=== PATIENT | female | born 1960 | race Caucasian/White ===

== ENCOUNTER 2020-07-20 16:46 | Outpatient (CLI) | payer OTHER, SELFPAY | END 2020-07-20 16:47 | disposition home or self-care (01) | LOC: ANHCOVIDVC 16:46 | PROVIDERS: PCP Internal Medicine | DX: Z23 Encounter for immunization (principal) | CPT/HCPCS: 0001A; 91300 ==

== ENCOUNTER 2020-08-10 16:47 | Outpatient (CLI) | payer OTHER, SELFPAY | END 2020-08-10 16:48 | disposition home or self-care (01) | LOC: ANHCOVIDVC 16:47 | PROVIDERS: PCP Internal Medicine | DX: Z23 Encounter for immunization (principal) | CPT/HCPCS: 0002A; 91300 ==

== ENCOUNTER 2021-04-26 00:47 | Day surgery (SDC) | payer OTHER, SELFPAY ==
[2021-04-15 14:57] VITALS: BMI 46.0
--- NOTE | 2021-04-26 08:12 | WPDANESEPPF ---
Anes - Initial Pre Proc Eval Procedure: Operation Date: 04/26/21 10:30 Proposed Procedures p Screening Colonoscopy - Az Escobedo MD Date/Time: 04/26/21 08:12 Surgeon: Az Escobedo MD Pre Op Diagnosis: family hx of colon ca, neoplasm screening Patient Data Age: 60 Gender: F Height: 1.6 m Weight: 118 kg Allergies Allergy/AdvReac Type Severity Reaction Status Date / Time No Known Allergies Allergy Verified 04/26/21 09:13 Home Medications Medication Instructions Recorded Confirmed Type atorvastatin 10 mg PO DAILY 04/15/21 04/26/21 History escitalopram oxalate [Lexapro] 10 mg PO DAILY 04/15/21 04/26/21 History levothyroxine 137 mcg PO DAILY 04/15/21 04/26/21 History lisinopril-hydrochlorothiazide 1 tablet PO DAILY 04/15/21 04/26/21 History semaglutide [Ozempic] 1 mg SUBCUT WEEKLY 04/15/21 04/26/21 History Patient hx anesthesia problems: none Family hx anesthesia problems: none Results Review: All pre-operative results and documents have been reviewed as part of the pre-operative evaluation. [facility] Past Medical History Medical History (Updated 04/26/21 @ 09:21 by Az Escobedo MD) Anxiety Diabetes type 2, controlled Hyperlipidemia Hypertension Hypothyroidism Family History Family History (Updated 01/30/18 @ 08:26 by DOCTOR UNKNOWN) Mother Hypertension Family history of kidney disease Family history of diabetes mellitus in first degree relative Diabetes mellitus Carcinoma of colon Father Family history of diabetes mellitus in first degree relative Acute myocardial infarction Diabetes mellitus Social History Social History Smoking status: Never smoker Alcohol intake: current Alcohol use details: rarely Living arrangements: other Spiritual care concerns: No Anes - Eval Final PreProcedure Day of Procedure 04/26/21 08:12 Patient weight: morbidly obese Heart: regular rate and rhythm Lungs: clear to auscultation and normal air movement Airway: Mallampati scale class II Neurological: alert and oriented Last oral intake: >/= 8 hours ASA classification: III Emergent: no Anesthetic plan: proceed Anesthesia type and monitoring: general GIVS and standard monitoring Results Review: All pre-operative results and documents have been reviewed as part of the pre-operative evaluation. Informed Consent: The patient's anesthetic plan and its attendant risks and benefits were discussed with the patient/family/POA. Questions were solicited and answers provided to the satisfaction of the patient/family/POA.
[2021-04-26 09:16] VITALS: BP 136/74; PULSE 64; RESP 17; TEMP 36; O2SAT 100; BMI 46.9
--- NOTE | 2021-04-26 09:19 | WPDGICN ---
Assessment and Plan Assessment and plan (1) Family history of colon cancer in mother: Code(s): Z80.0 - Family history of malignant neoplasm of digestive organs Status: Acute Assessment and Plan: Patient's mother had colon cancer. For this reason surveillance colonoscopy advised intervals. GI Consult Note Consult date/time: 04/26/21 09:19 HPI: Yeny Cohen is a 60 year old female Presents for screening colonoscopy. Patient's current weight appetite bowel movements are normal. She denies abdominal pain. She has had no blood in her stools. Patient's family history is significant that her mother had colon cancer. Patient previously had screening colonoscopy by Dr. Gan. In 2018 preparation was somewhat limited. For this reason patient presents today for follow-up colonoscopy. Review of Systems Review of Systems: All systems reviewed & are unremarkable except as noted in HPI and below PMFSH Past Medical History Medical History (Updated 04/26/21 @ 09:21 by Az Escobedo MD) Anxiety Diabetes type 2, controlled Hyperlipidemia Hypertension Hypothyroidism Family History Family History (Updated 01/30/18 @ 08:26 by DOCTOR UNKNOWN) Mother Hypertension Family history of kidney disease Family history of diabetes mellitus in first degree relative Diabetes mellitus Carcinoma of colon Father Family history of diabetes mellitus in first degree relative Acute myocardial infarction Diabetes mellitus Social History Social History Smoking status: Never smoker Alcohol intake: current Alcohol use details: rarely Living arrangements: other Spiritual care concerns: No Meds Home Medications and Allergies Home Medications Medication Instructions Recorded Confirmed Type atorvastatin 10 mg PO DAILY 04/15/21 04/26/21 History escitalopram oxalate [Lexapro] 10 mg PO DAILY 04/15/21 04/26/21 History levothyroxine 137 mcg PO DAILY 04/15/21 04/26/21 History lisinopril-hydrochlorothiazide 1 tablet PO DAILY 04/15/21 04/26/21 History semaglutide [Ozempic] 1 mg SUBCUT WEEKLY 04/15/21 04/26/21 History Allergies Allergy/AdvReac Type Severity Reaction Status Date / Time No Known Allergies Allergy Verified 04/26/21 09:13 Vital Signs Vital Signs - 24 hr 04/26/21 09:16 Temperature 96.8 F L Pulse Rate 64 Respiratory Rate 17 Blood Pressure 136/74 Pulse Oximetry 100 Exam Narrative: Physical exam reveals patient be alert. Vital signs stable. HEENT exam is unremarkable. Patient is anicteric. Lungs are clear to auscultation and percussion. Heart is without murmur or extra sounds. Abdominal exam bowel sounds are present soft nontender with no hepatosplenomegaly. Digital external rectal exam is normal.
[2021-04-26 09:24] LABS: Glucose Point of Care 76 mg/dl (65-105)
[2021-04-26] MEDS: LACTATED RINGERS 1,000 ML 150 ML IV CONT (09:28)
[2021-04-26 09:51] VITALS: BP 87/53; PULSE 59; RESP 23; O2SAT 99
[2021-04-26 10:01] VITALS: BP 107/56; PULSE 53; RESP 17; O2SAT 99
[2021-04-26 10:05] LABS: Glucose Point of Care 73 mg/dl (65-105)
[2021-04-26 10:11] VITALS: BP 131/75; PULSE 56; RESP 20; O2SAT 100
== END 2021-04-26 10:25 | disposition home or self-care (01) ==
PROVIDERS: PCP Nurse Practitioner Family; Visit Provider Internal Medicine Gastroenterology
PROC: 0DJD8ZZ Inspection of Lower Intestinal Tract, Via Natural or Artificial Opening Endoscopic (ICD-10-PCS; CPT 45378; principal; 2021-04-26 10:30)
DX: Z12.11 Encounter for screening for malignant neoplasm of colon (principal); K64.8 Other hemorrhoids; I10 Essential (primary) hypertension; E11.9 Type 2 diabetes mellitus without complications; E78.5 Hyperlipidemia, unspecified; E03.9 Hypothyroidism, unspecified; F41.9 Anxiety disorder, unspecified; Z80.0 Family history of malignant neoplasm of digestive organs
CPT/HCPCS: 45378; 82948; J2704; J7120

== ENCOUNTER 2022-09-19 11:58 | Outpatient (CLI) | payer OTHER, SELFPAY ==
[2022-09-19 12:24] LABS: Hematocrit 43.3 % (37.0-47.0); Hemoglobin 13.6 g/dL (12.0-15.0)
[2022-09-19 12:35] LABS: Anion Gap 5 mmol/L (8-16); Blood Urea Nitrogen 9 mg/dL (7-17); Calcium 8.8 mg/dL (8.4-10.2); Carbon Dioxide 31 mmol/L (22-30); Chloride 99 mmol/L (98-107); Estimated Glomerular Filt Rate > 60; Glucose 95 mg/dL (65-110); Potassium 3.4 mmol/L (3.4-5.0); Sodium 135 mmol/L (137-145)
== END 2022-09-19 11:59 | disposition home or self-care (01) ==
PROVIDERS: Anesthesiology; PCP Nurse Practitioner Family; Visit Provider Obstetrics & Gynecology
DX: E11.9 Type 2 diabetes mellitus without complications (principal); N95.0 Postmenopausal bleeding
CPT/HCPCS: 36415; 80048; 85014; 85018

== ENCOUNTER 2022-09-23 01:49 | Day surgery (SDC) | payer OTHER, SELFPAY ==
[2022-09-15 12:49] VITALS: BMI 54.8
--- NOTE | 2022-09-15 12:54 | PC.NURSE ---
Report to the Outpatient Waiting Room, entrance under the green pavilion located off [facility], at time 7:30 on date 09/23/22. Planned Procedure Time: 9:30. Time changes happen often and if your time is changed the preop area will call you the afternoon before. - You and your visitor will be asked to self-screen and do not enter if you have any COVID symptoms. - A mask is optional within the hospital at this time. Patients may have clear liquids (water, carbonated beverages, clear teas, apple juice) until 3 hours prior to surgery with a maximum of 20 ounces. - No food from midnight until time of surgery Take the following medications with a SIP of water the morning of surgery: LEXAPRO, LEVOTHYROXINE DO NOT STOP ANY OF YOUR OTHER PRESCRIPTION MEDICATIONS PRIOR TO SURGERY?EXCEPT THE FOLLOWING Medications to discontinue per physician: N/A Date to take last dose: N/A Please no make-up, nail bulgarian, hairspray, perfume, deodorant, or body powder the day of surgery. No jewelry (including any body piercings) or valuables the day of surgery, leave them at home. Please take a shower or bath the night before, or the morning of, surgery with an antibacterial soap. Wear comfortable, loose fitting clothing. - Jewelry must be removed prior to entering the operating room. Rings and piercings that are not removed may be cut off. - The hospital will not accept responsibility for valuables. - Please leave all valuables, including medications, at home the day of surgery. If you are going home after surgery, a licensed truck driver helper must drive you home. - NO public transportation without another adult if you receive anesthesia. - We recommend that an adult stay with you for 24 hours following discharge. - We also recommend that you do not drive, make important decision, drink alcoholic beverages, or take any drugs that were not prescribed by your health care provider for at least 24 hours after your discharge time. Follow any additional instructions given to you from your surgeon. If you or anyone in your household have experienced Covid symptoms in the past week, please notify your surgeon or the nurse liaison at the phone number below for possible testing. Telephone instructions given to PT - MAEVE VALENZUELA and asked if any additional questions and then verbalized understanding. Patient advised to call surgeon office or pre surgery nurse liaison [phone] if any additional questions.
--- NOTE | 2022-09-21 16:30 | P.HP_ITS ---
H&P: HPI History of Present Illness Date/Time: 09/21/22 16:30 Chief Complaint: Postmenopausal bleeding Narrative: Some 62-year-old postmenopausal who had some vaginal bleeding. She underwent ultrasound which showed thickened endometrium measuring 13mm. And also some irregularity to it. She was offered hysteroscopy and dilatation curettage. Risks and benefits reviewed including left was of of , as piration burning or bleeding, transfusion, perforation injury to bowel bladder ureters other internal organs with need for open laparotomy. She received the ACOG handout entitled hysteroscopy as well as dilatation curettage respectively. She had all questions answered. She asked to proceed. [facility] Past Medical History Medical History Anxiety Diabetes type 2, controlled Hyperlipidemia Hypertension Hypothyroidism Family History Family History Mother Hypertension Family history of kidney disease Family history of diabetes mellitus in first degree relative Diabetes mellitus Carcinoma of colon Father Family history of diabetes mellitus in first degree relative Acute myocardial infarction Diabetes mellitus Social History Social History Smoking status: Never smoker Alcohol intake: current Drinks per week: 2 Alcohol use details: rarely Substance use: never Substance use type: does not use Living arrangements: with family Additional living arrangements comments: SON Spiritual care concerns: No Meds Home Medications and Allergies Home Medications Medication Instructions Recorded Confirmed Type atorvastatin 10 mg tablet 10 mg PO DAILY 04/15/21 09/15/22 History escitalopram oxalate 10 mg tablet 10 mg PO DAILY 04/15/21 09/15/22 History (Lexapro) levothyroxine 137 mcg tablet 137 mcg PO DAILY 04/15/21 09/15/22 History lisinopril 10 1 tablet PO DAILY 04/15/21 09/15/22 History mg-hydrochlorothiazide 12.5 mg tablet semaglutide 1 mg/dose (4 mg/3 mL) 1 mg subcut WEEKLY 04/15/21 09/15/22 History subcutaneous pen injector (Ozempic) Allergies Allergy/AdvReac Type Severity Reaction Status Date / Time No Known Allergies Allergy Verified 09/15/22 12:48 Exam Const: General: cooperative, healthy appearing, comfortable and overweight Orientation/consciousness: oriented to person, oriented to place and oriented to time HENMT: Head: normal to inspection Resp: Effort & Inspection: normal respiratory effort Cardio: Rate: regular rate Rhythm: regular rhythm Heart sounds: S1 normal heart sound present and S2 normal heart sound present GI: Inspection: normal to inspection and obesity : External Female Exam: normal external appearance Speculum Exam - Vagina: normal appearance of the vagina and vaginal bleeding Speculum Exam - Cervix: normal appearance of the cervix Bimanual exam- vagina & uterus: enlarged Bimanual Exam- Adnexa, other: normal adnexae Assessment and Plan Assessment and plan (1) Postmenopausal bleeding: Code(s): N95.0 - Postmenopausal bleeding Status: Acute Plan Hysteroscopy/dilatation curettage
--- NOTE | 2022-09-22 09:58 | P.PNAN_ITS ---
Anes - Initial Pre Proc Eval Procedure: Operation Date: 09/23/22 09:30 Proposed Procedures p Hysteroscopy Dilation and Curettage - Cesar Power MD Date/Time: 09/22/22 09:58 Surgeon: Cesar Power MD Pre Op Diagnosis: post menopausal bleeding Patient Data Age: 62 Gender: F Height: 1.57 m Weight: 136.1 kg Allergies Allergy/AdvReac Type Severity Reaction Status Date / Time No Known Allergies Allergy Verified 09/23/22 08:29 Home Medications Medication Instructions Recorded Confirmed Type atorvastatin 10 mg tablet 10 mg PO DAILY 04/15/21 09/15/22 History escitalopram oxalate 10 mg tablet 10 mg PO DAILY 04/15/21 09/15/22 History (Lexapro) levothyroxine 137 mcg tablet 137 mcg PO DAILY 04/15/21 09/15/22 History lisinopril 10 1 tablet PO DAILY 04/15/21 09/15/22 History mg-hydrochlorothiazide 12.5 mg tablet semaglutide 1 mg/dose (4 mg/3 mL) 1 mg subcut WEEKLY 04/15/21 09/15/22 History subcutaneous pen injector (Ozempic) hydrocodone 5 mg-acetaminophen 325 1 tablet PO Q4H PRN pain #14 tabs 09/23/22 Rx mg tablet Patient hx anesthesia problems: none Family hx anesthesia problems: none Results Review: All pre-operative results and documents have been reviewed as part of the pre- operative evaluation. [facility] Past Medical History Medical History Anxiety Diabetes type 2, controlled Hyperlipidemia Hypertension Hypothyroidism Family History Family History Mother Hypertension Family history of kidney disease Family history of diabetes mellitus in first degree relative Diabetes mellitus Carcinoma of colon Father Family history of diabetes mellitus in first degree relative Acute myocardial infarction Diabetes mellitus Social History Social History Smoking status: Never smoker Alcohol intake: current Drinks per week: 2 Alcohol use details: rarely Substance use: never Substance use type: does not use Living arrangements: with family Additional living arrangements comments: SON Spiritual care concerns: No Anes - Eval Final PreProcedure Day of Procedure 09/22/22 09:58 Patient weight: super morbidly obese Heart: regular rate and rhythm Lungs: clear to auscultation and normal air movement Airway: Mallampati scale class II Neurological: alert and oriented Last oral intake: >/= 8 hours ASA classification: III Emergent: no Anesthetic plan: proceed Anesthesia type and monitoring: general GIVS and standard monitoring Results Review: All pre-operative results and documents have been reviewed as part of the pre- operative evaluation. Informed Consent: The patient's anesthetic plan and its attendant risks and benefits were discus sed with the patient/family/POA. Questions were solicited and answers provided to the satisfaction of the patient/family/POA.
--- NOTE | 2022-09-23 07:13 | WPDHPUPDATE1 ---
History and Physical Update Update Date/Time: 09/23/22 07:13 History and Physical has been reviewed, including an updated exam of the patient. There are NO changes in the patient's condition. Risks, benefits, and alternatives have been discussed and questions answered. Patient agrees to proceed with procedure.
[2022-09-23 07:38] VITALS: BP 152/74; PULSE 60; RESP 16; TEMP 35.9; O2SAT 98; BMI 52.0
[2022-09-23] MEDS: ACETAMINOPHEN 500 MG TABLET 1000 MG PO (08:26)
[2022-09-23] MEDS: LACTATED RINGERS 1,000 ML 30 ML IV CONT (08:27)
[2022-09-23 08:30] LABS: Glucose Point of Care 94 mg/dl (65-105)
[2022-09-23] MEDS: LIDOCAINE HCL 1% LOCAL INJ 20 ML VIAL 10 ML INFILTRATE (09:56)
--- NOTE | 2022-09-23 10:07 | W.PM.PROC2 ---
Procedure Note - Detailed Date of Procedure 09/23/22 Pre-op Diagnosis post menopausal bleeding Post-op Diagnosis Other (Uterine fibroid) Procedure Performed hysteroscopy/ dilatation curettage/l polypectomy Surgeon Cesar Power MD Anesthesia MAC and Local Indications 62-year-old female with postmenopausal bleeding Findings uterus sounded 8cm. Small fibroid was seen at the fundus. Description of Procedure Patient was prepped draped in sterile fashion placed in dorsal lithotomy position. Under excellent IV sedation weighted speculum placed in posterior fornix vagina. Anterior lip of the cervix grasped with a single-tooth tenaculum. 2.5cc 1% xylocaine anesthesia placed at 2, 4, 8, 10:00 a.m. of the cervix. Uterus sounded 8cm. Serial dilatation with fragmented dilators performed followed by passage of the V to hysteroscope using normal saline as visualizing medium. A small uterine fibroid was seen at the fundus and using the viewed instrument this was cut away from the wall of the uterus. Uterus was scraped over the entire 360?. The instruments withdrawn. The patient was awakened went to recovery in satisfactory condition. All sponge, needle, instrument counts were correct. There were no immediate complications Estimated Blood Loss 5 Drains No Packing No Pathology Yes Complications No immediate complications Condition Stable Disposition PACU
[2022-09-23 10:09] VITALS: BP 113/61; PULSE 53; RESP 14; O2SAT 96
[2022-09-23 10:22] LABS: Glucose Point of Care 90 mg/dl (65-105)
[2022-09-23 10:40] VITALS: BP 113/61; PULSE 53; RESP 16; O2SAT 96
--- NOTE | 2022-09-23 11:00 | SUR.PHASEII ---
Vital signs stable, IV removed patient dressed and waiting for ride.
== END 2022-09-23 11:40 | disposition home or self-care (01) ==
PROVIDERS: PCP Nurse Practitioner Family; Visit Provider Obstetrics & Gynecology
PROC: 0U5B8ZZ Destruction of Endometrium, Via Natural or Artificial Opening Endoscopic (ICD-10-PCS; CPT 58563; principal; 2022-09-23 09:30)
DX: N95.0 Postmenopausal bleeding (principal); N84.0 Polyp of corpus uteri; E11.9 Type 2 diabetes mellitus without complications; E78.5 Hyperlipidemia, unspecified; I10 Essential (primary) hypertension; E03.9 Hypothyroidism, unspecified
CPT/HCPCS: 58558; 82948; 88305; A9270; J1885; J2250; J2704; J3010; J7120

== ENCOUNTER 2023-04-13 07:38 | Outpatient (CLI) | payer OTHER, SELFPAY ==
--- NOTE | 2023-04-13 08:20 | ECG_ITS ---
Measurements Intervals [place] Rate: 51 P: 12 [place]: 199 QRS: -3 QRSD: 106 T: 43 QT: 470 QTc: 437 Interpretive Statements SINUS BRADYCARDIA NO PREVIOUS ECG AVAILABLE FOR COMPARISON Electronically Signed On 04-13-2023 9:21:27 [employer]ERSON[employer]OP[employer]OR by Enriqueta Chin M.D.
[2023-04-13 08:24] LABS: Hematocrit 41.3 % (37.0-47.0); Hemoglobin 13.2 g/dL (12.0-15.0); Mean Corpuscular Hemoglobin 31.9 pg (26-34); Mean Corpuscular Volume 99.8 fl (80-100); Mean Platelet Volume 11.9 fl (7.4-10.4); Platelet Count Result 224 k/mm3 (150-375); Red Blood Count 4.14 M/mm3 (4.2-5.4); Red Cell Distribution Width 13.8 % (11.5-14.5); White Blood Count 7.2 K/mm3 (4.5-10.0)
[2023-04-13 08:32] LABS: Anion Gap 7 mmol/L (8-16); Blood Urea Nitrogen 10 mg/dL (7-17); Calcium 8.9 mg/dL (8.4-10.2); Carbon Dioxide 30 mmol/L (22-30); Chloride 98 mmol/L (98-107); Estimated Glomerular Filt Rate > 60; Glucose 105 mg/dL (65-110); Potassium 3.9 mmol/L (3.4-5.0); Sodium 135 mmol/L (137-145)
[2023-04-13 09:01] LABS: Basophils Absolute Auto 0.1 K/mm3 (0.0-0.1); Basophils Percent Auto 0.8 % (0.2-1.2); Eosinophils Absolute Auto 0.1 K/mm3 (0-0.3); Eosinophils Percent Auto 1.8 % (0-4.4); Immature Granulocyte Absolute 0.02 K/mm3 (0.00-0.031); Immature Granulocyte Percent A 0.3 % (0-0.5); Lymphocytes Absolute Auto 2.54 K/mm3 (0.9-3.2); Lymphocytes Percent Auto 34.6 % (18.3-44.2); Monocytes Absolute Auto 0.7 K/mm3 (0.1-0.6); Monocytes Percent Auto 9.5 % (2.6-8.5); Neutrophils Absolute Auto 3.9 K/mm3 (1.3-6.7)
== END 2023-04-13 07:39 | disposition home or self-care (01) ==
LOC: ANHLAB 07:40
PROVIDERS: PCP Nurse Practitioner Family; Referring Provider Obstetrics & Gynecology; Visit Provider Anesthesiology
DX: N95.0 Postmenopausal bleeding (principal); E11.9 Type 2 diabetes mellitus without complications; I10 Essential (primary) hypertension; Z01.818 Encounter for other preprocedural examination
CPT/HCPCS: 36415; 80048; 85025; 85027; 86850; 86900; 86901; 93005

== ENCOUNTER 2023-04-14 03:14 | Day surgery (SDC) | payer OTHER, SELFPAY ==
--- NOTE | 2023-04-11 06:55 | PM.IMHP ---
H&P: HPI History of Present Illness Date/Time: 04/11/23 06:55 Chief Complaint: vaginal bleeding and uterine fibroid Narrative: a 62-year-old female with the enlarged uterus and uterine fibroid and negative findings on hysteroscopy admitted for hysterectomy and bilateral salpingo-oophorectomy secondary to the above complaint. Risks and benefits reviewed including but not exclusive of , aspiration pneumonia, bleeding, transfusion, perforation injury to bowel, bladder, ureters, or other internal organs with need for open laparotomy. She received the ACOG handout entitled hysterectomy as well as a [facility] handout. She had all questions answered. She asked to proceed PMFSH Past Medical History Medical History Anxiety Diabetes type 2, controlled Hyperlipidemia Hypertension Hypothyroidism Family History Family History Mother Hypertension Family history of kidney disease Family history of diabetes mellitus in first degree relative Diabetes mellitus Carcinoma of colon Father Family history of diabetes mellitus in first degree relative Acute myocardial infarction Diabetes mellitus Social History Social History Smoking status: Never smoker Alcohol intake: current Drinks per week: 2 Alcohol use details: rarely Substance use: never Substance use type: does not use Living arrangements: with family Additional living arrangements comments: SON Spiritual care concerns: No Meds Home Medications and Allergies Home Medications Medication Instructions Recorded Confirmed Type atorvastatin 10 mg tablet 10 mg PO DAILY 04/15/21 09/15/22 History escitalopram oxalate 10 mg tablet 10 mg PO DAILY 04/15/21 09/15/22 History (Lexapro) levothyroxine 137 mcg tablet 137 mcg PO DAILY 04/15/21 09/15/22 History lisinopril 10 1 tablet PO DAILY 04/15/21 09/15/22 History mg-hydrochlorothiazide 12.5 mg tablet semaglutide 1 mg/dose (4 mg/3 mL) 1 mg subcut WEEKLY 04/15/21 09/15/22 History subcutaneous pen injector (Ozempic) hydrocodone 5 mg-acetaminophen 325 1 tablet PO Q4H PRN pain #14 tabs 09/23/22 Rx mg tablet Allergies Allergy/AdvReac Type Severity Reaction Status Date / Time No Known Allergies Allergy Verified 09/23/22 08:29 Exam Const: General: cooperative, healthy appearing and comfortable Nutritional Appearance: average body habitus Orientation/consciousness: oriented to person, oriented to place and oriented to time Chest: Chest palpation & inspection: normal inspection of the chest Resp: Effort & Inspection: normal respiratory effort Cardio: Rate: regular rate Rhythm: regular rhythm Heart sounds: S1 normal heart sound present and S2 normal heart sound present GI: Inspection: normal to inspection : External Female Exam: normal external appearance Speculum Exam - Vagina: normal appearance of the vagina Speculum Exam - Cervix: normal appearance of the cervix Bimanual exam- vagina & uterus: enlarged Bimanual Exam- Adnexa, other: normal adnexae Assessment and Plan Assessment and plan (1) Postmenopausal bleeding: Code(s): N95.0 - Postmenopausal bleeding Status: Acute (2) Uterine fibroid: Code(s): D25.9 - Leiomyoma of uterus, unspecified Status: Acute (3) Pelvic pain: Code(s): R10.2 - Pelvic and perineal pain Status: Acute Plan robotic total vaginal hysterectomy and salpingo-oophorectomy
--- NOTE | 2023-04-12 14:45 | PC.NURSE ---
Report to the Outpatient Waiting Room, entrance under the green pavilion located off [facility], at time 0930 on date 04/14/23. Planned Procedure Time: 1130. Time changes happen often and if your time is changed the preop area will call you the afternoon before. - You and your visitor will be asked to self-screen and do not enter if you have any COVID symptoms. - A mask is optional within the hospital at this time. Patients may have clear liquids (water, carbonated beverages, clear teas, apple juice) until 3 hours prior to surgery with a maximum of 20 ounces. 0830 - No food from midnight until time of surgery - Infants may have breast milk until 4 hours before surgery, formula 6 hours prior to surgery. - Children will be allowed to drink immediately following surgery. If applicable, please bring a bottle or sippy cup to assist with drinking. Juice, water, soda, and popsicles are readily available. For infants on formula, please bring formula the day of surgery. Pacifiers are allowed. Take the following medications with a SIP of water the morning of surgery: lexapro, levothyroxine DO NOT STOP ANY OF YOUR OTHER PRESCRIPTION MEDICATIONS PRIOR TO SURGERY ?EXCEPT THE FOLLOWING Medications to discontinue per physician atorvastatin, lisinopril-hydrochlorothiazide, multivitamins & supplements Date to take last dose 04/13/23 (multivitamins & supplements stopped 04/13/23) Please no make-up, nail welsh, hairspray, perfume, deodorant, or body powder the day of surgery. No jewelry (including any body piercings) or valuables the day of surgery, leave them at home. Please take a shower or bath the night before, or the morning of, surgery with an antibacterial soap. Wear comfortable, loose fitting clothing. Children are encouraged to wear pajamas. - Jewelry must be removed prior to entering the operating room. Rings and piercings that are not removed may be cut off. - The hospital will not accept responsibility for valuables. - Please leave all valuables, including medications, at home the day of surgery. If you are going home after surgery, a licensed grain combine driver must drive you home. - NO public transportation without another adult if you receive anesthesia. - We recommend that an adult stay with you for 24 hours following discharge. - We also recommend that you do not drive, make important decision, drink alcoholic beverages, or take any drugs that were not prescribed by your health care provider for at least 24 hours after your discharge time. For Pediatric surgeries, we recommend two adults accompany the child home. Follow any additional instructions given to you from your surgeon. If you or anyone in your household have experienced Covid symptoms in the past week, please notify your surgeon or the nurse liaison at the phone number below for possible testing. Telephone instructions given to Patient- Yeny Cohen and asked if any additional questions and then verbalized understanding. Patient advised to call surgeon office or pre surgery nurse liaison [phone] if any additional questions.
[2023-04-12 14:53] VITALS: BMI 51.2
--- NOTE | 2023-04-14 06:16 | WPDHPUPDATE1 ---
History and Physical Update Update Date/Time: 04/14/23 06:16 History and Physical has been reviewed, including an updated exam of the patient. There are NO changes in the patient's condition. Risks, benefits, and alternatives have been discussed and questions answered. Patient agrees to proceed with procedure.
[2023-04-14 09:40] LABS: Glucose Point of Care 98 mg/dl (65-105)
--- NOTE | 2023-04-14 09:56 | ECG_ITS ---
Measurements Intervals [place] Rate: 44 P: -3 [place]: 188 QRS: -11 QRSD: 96 T: 42 QT: 503 QTc: 432 Interpretive Statements Reduced ECG quality because of baseline motion artifact SINUS BRADYCARDIA POOR R-WAVE PROGRESSION BORDERLINE ECG COMPARED TO ECG 04/13/2023 08:26:19 NO SIGNIFICANT CHANGES Electronically Signed On 04-14-2023 10:42:27 [employer]PRESENTATIVE by Silvio Oneill M.D.
[2023-04-14 09:59] VITALS: BMI 51.2
[2023-04-14 10:08] VITALS: BP 127/57; PULSE 42; RESP 16; TEMP 36.3; O2SAT 98
== END 2023-04-14 12:20 | disposition home or self-care (01) ==
PROVIDERS: PCP Nurse Practitioner Family; Visit Provider Obstetrics & Gynecology
DX: N95.0 Postmenopausal bleeding (principal); D25.9 Leiomyoma of uterus, unspecified; I10 Essential (primary) hypertension; E11.9 Type 2 diabetes mellitus without complications; E78.5 Hyperlipidemia, unspecified; E03.9 Hypothyroidism, unspecified; F41.9 Anxiety disorder, unspecified; Z79.85 Long-term (current) use of injectable non-insulin antidiabetic drugs; Z53.9 Procedure and treatment not carried out, unspecified reason
CPT/HCPCS: 36415; 80048; 82948; 85025; 85027; 86850; 86900; 86901; 93005; 99213; G0463

== ENCOUNTER 2023-07-04 08:18 | Outpatient (CLI) | payer BC, SELFPAY ==
[2023-07-04 08:50] LABS: Basophils Absolute Auto 0.1 K/mm3 (0.0-0.1); Eosinophils Absolute Auto 0.2 K/mm3 (0-0.3); Eosinophils Percent Auto 2.3 % (0-4.4); Hematocrit 42.7 % (37.0-47.0); Hemoglobin 13.6 g/dL (12.0-15.0); Immature Granulocyte Absolute 0.02 K/mm3 (0.00-0.031); Immature Granulocyte Percent A 0.3 % (0-0.5); Lymphocytes Absolute Auto 2.58 K/mm3 (0.9-3.2); Lymphocytes Percent Auto 33.4 % (18.3-44.2); Mean Corpuscular HGB Conc 31.9 g/dl (32-36); Mean Corpuscular Volume 100.5 fl (80-100); Mean Platelet Volume 11.9 fl (7.4-10.4); Monocytes Absolute Auto 0.5 K/mm3 (0.1-0.6); Monocytes Percent Auto 6.9 % (2.6-8.5); Neutrophils Absolute Auto 4.3 K/mm3 (1.3-6.7); Neutrophils Percent Auto 56.1 % (45.5-73.1); Platelet Count Result 254 k/mm3 (150-375); Red Blood Count 4.25 M/mm3 (4.2-5.4); Red Cell Distribution Width 13.4 % (11.5-14.5); White Blood Count 7.7 K/mm3 (4.5-10.0)
[2023-07-04 08:58] LABS: Anion Gap 3 mmol/L (8-16); Blood Urea Nitrogen 14 mg/dL (7-17); Calcium 9.6 mg/dL (8.4-10.2); Carbon Dioxide 33 mmol/L (22-30); Chloride 99 mmol/L (98-107); Estimated Glomerular Filt Rate > 60; Glucose 107 mg/dL (65-110); Potassium 4.3 mmol/L (3.4-5.0); Sodium 135 mmol/L (137-145)
== END 2023-07-04 08:19 | disposition home or self-care (01) ==
LOC: ANHSURGERY 08:24
PROVIDERS: Anesthesiology; PCP Nurse Practitioner Family; Visit Provider Obstetrics & Gynecology
DX: Z01.818 Encounter for other preprocedural examination (principal); D25.9 Leiomyoma of uterus, unspecified; Z79.899 Other long term (current) drug therapy
CPT/HCPCS: 36415; 80048; 85025; 86850; 86900; 86901

== ENCOUNTER 2023-07-07 01:38 | Day surgery (SDC) | payer BC, SELFPAY ==
[2023-06-30 11:05] VITALS: BMI 51.2
--- NOTE | 2023-06-30 11:10 | PC.NURSE ---
Report to the Outpatient Waiting Room, entrance under the green pavilion located off [facility], at time 9:30 on date 07/07/23. Planned Procedure Time: 11:30. Time changes happen often and if your time is changed the preop area will call you the afternoon before. - You and your visitor will be asked to self-screen and do not enter if you have any COVID symptoms. - A mask is optional within the hospital at this time. Patients may have clear liquids (water, carbonated beverages, clear teas, apple juice) until 3 hours prior to surgery (8:30) with a maximum of 20 ounces. - No food from midnight until time of surgery Take the following medications with a SIP of water the morning of surgery: LEVOTHYROXINE DO NOT STOP ANY OF YOUR OTHER PRESCRIPTION MEDICATIONS PRIOR TO SURGERY ?EXCEPT THE FOLLOWING Medications to discontinue per physician: VITAMINS/SUPPLEMENTS Date to take last dose: 07/03/23 Please no make-up, nail arabic, hairspray, perfume, deodorant, or body powder the day of surgery. No jewelry (including any body piercings) or valuables the day of surgery, leave them at home. Please take a shower or bath the night before, or the morning of, surgery with an antibacterial soap. Wear comfortable, loose fitting clothing. - Jewelry must be removed prior to entering the operating room. Rings and piercings that are not removed may be cut off. - The hospital will not accept responsibility for valuables. - Please leave all valuables, including medications, at home the day of surgery. If you are going home after surgery, a licensed bobtail driver must drive you home. - NO public transportation without another adult if you receive anesthesia. - We recommend that an adult stay with you for 24 hours following discharge. - We also recommend that you do not drive, make important decision, drink alcoholic beverages, or take any drugs that were not prescribed by your health care provider for at least 24 hours after your discharge time. Follow any additional instructions given to you from your surgeon. If you or anyone in your household have experienced Covid symptoms in the past week, please notify your surgeon or the nurse liaison at the phone number below for possible testing. Telephone instructions given to PT - MAEVE VALENZUELA and asked if any additional questions and then verbalized understanding. Patient advised to call surgeon office or pre surgery nurse liaison [phone] if any additional questions.
--- NOTE | 2023-07-05 07:54 | PM.IMHP ---
H&P: HPI History of Present Illness Date/Time: 07/05/23 07:54 Chief Complaint: Pelvic pain/postmenopausal bleeding with benign findings./uterine fibroid Narrative: Is a 62-year-old female status post hysteroscopy with benign findings she was admitted for robotic hysterectomy and bilateral salpingo-oophorectomy secondary to uterine fibroids pelvic pain and postmenopausal bleeding. As noted she had endometrial sampling which was negative. The risks and benefits of this procedure reviewed including but not exclusive of , aspiration, bleeding, transfusion, perforation injury to bowel, bladder, ureters, or other internal organs with need for laparotomy. She had all questions answered. She had read the ACOG handout as well as de Daily handout. She asked to proceed. She has been surgically cleared by her machine slat basket maker as well PMFSH Past Medical History Medical History Anxiety Diabetes type 2, controlled Hyperlipidemia Hypertension Hypothyroidism Family History Family History Mother Hypertension Family history of kidney disease Family history of diabetes mellitus in first degree relative Diabetes mellitus Carcinoma of colon Father Family history of diabetes mellitus in first degree relative Acute myocardial infarction Diabetes mellitus Social History Social History Smoking status: Never smoker Alcohol intake: current Drinks per week: 2 Alcohol use details: RARE Substance use: current Substance use type: marijuana Other substance usage details: RARE Living arrangements: with family Additional living arrangements comments: SON Spiritual care concerns: No Meds Home Medications and Allergies Home Medications Medication Instructions Recorded Confirmed Type atorvastatin 10 mg tablet 10 mg PO DAILY 04/15/21 06/30/23 History levothyroxine 137 mcg tablet 137 mcg PO DAILY 04/15/21 06/30/23 History lisinopril 10 1 tablet PO DAILY 04/15/21 06/30/23 History mg-hydrochlorothiazide 12.5 mg tablet Adults Multivitamin 1 tab-cap PO DAILY 04/12/23 06/30/23 History B Complex-Vitamin B12 1 tab-cap PO DAILY 04/12/23 06/30/23 History Allergies Allergy/AdvReac Type Severity Reaction Status Date / Time No Known Allergies Allergy Verified 06/30/23 11:04 Exam Const: General: cooperative, comfortable and obese Orientation/consciousness: oriented to person, oriented to place and oriented to time HENMT: Head: normal to inspection Resp: Effort & Inspection: normal respiratory effort Cardio: Rate: regular rate Rhythm: regular rhythm Heart sounds: S1 normal heart sound present and S2 normal heart sound present GI: Inspection: normal to inspection and obesity : External Female Exam: normal external appearance Speculum Exam - Vagina: normal appearance of the vagina Speculum Exam - Cervix: normal appearance of the cervix Bimanual exam- vagina & uterus: enlarged and Uterine tenderness Bimanual Exam- Adnexa, other: normal adnexae Assessment and Plan Assessment and plan (1) Pelvic pain: Code(s): R10.2 - Pelvic and perineal pain Status: Acute (2) Uterine fibroid: Code(s): D25.9 - Leiomyoma of uterus, unspecified Status: Acute (3) Postmenopausal bleeding: Code(s): N95.0 - Postmenopausal bleeding Status: Acute Plan Robotic total vaginal hysterectomy and bilateral salpingo-oophorectomy
[2023-07-07] VITALS (8 sets, daily range): BP systolic 120–165; BP diastolic 60–92; PULSE 55–78; RESP 12–18; TEMP 36.2–37; O2SAT 96–100; BMI 53.8
--- NOTE | 2023-07-07 05:44 | WPDHPUPDATE1 ---
History and Physical Update Update Date/Time: 07/07/23 05:44 History and Physical has been reviewed, including an updated exam of the patient. There are NO changes in the patient's condition. Risks, benefits, and alternatives have been discussed and questions answered. Patient agrees to proceed with procedure.
--- NOTE | 2023-07-07 10:18 | P.PNAN_ITS ---
Anes - Initial Pre Proc Eval Procedure: Operation Date: 07/07/23 11:30 Proposed Procedures p Robotic Assisted Total Vaginal Hysterectomy with Bilateral Salpingo- oophorectomy - Cesar Power MD Date/Time: 07/07/23 10:18 Surgeon: Cesar Power MD Pre Op Diagnosis: Fibroids, Pain, Post Menopausal Bleeding Patient Data Age: 62 Gender: F Height: 1.57 m Weight: 133.5 kg Allergies Allergy/AdvReac Type Severity Reaction Status Date / Time No Known Allergies Allergy Verified 07/07/23 09:53 Home Medications Medication Instructions Recorded Confirmed Type atorvastatin 10 mg tablet 10 mg PO DAILY 04/15/21 06/30/23 History levothyroxine 137 mcg tablet 137 mcg PO DAILY 04/15/21 07/07/23 History lisinopril 10 1 tablet PO DAILY 04/15/21 06/30/23 History mg-hydrochlorothiazide 12.5 mg tablet Adults Multivitamin 1 tab-cap PO DAILY 04/12/23 06/30/23 History B Complex-Vitamin B12 1 tab-cap PO DAILY 04/12/23 06/30/23 History hydrocodone 5 mg-acetaminophen 325 1 tablet PO Q4H PRN pain #20 tabs 07/07/23 Rx mg tablet Patient hx anesthesia problems: none Family hx anesthesia problems: none Results Review: All pre-operative results and documents have been reviewed as part of the pre- operative evaluation. [facility] Past Medical History Medical History Anxiety Diabetes type 2, controlled Hyperlipidemia Hypertension Hypothyroidism Family History Family History Mother Hypertension Family history of kidney disease Family history of diabetes mellitus in first degree relative Diabetes mellitus Carcinoma of colon Father Family history of diabetes mellitus in first degree relative Acute myocardial infarction Diabetes mellitus Social History Social History Smoking status: Never smoker Alcohol intake: current Drinks per week: 2 Alcohol use details: RARE Substance use: current Substance use type: marijuana Other substance usage details: RARE Living arrangements: with family Additional living arrangements comments: SON Spiritual care concerns: No Anes - Eval Final PreProcedure Day of Procedure 07/07/23 10:18 Patient weight: super morbidly obese Heart: regular rate and rhythm Lungs: decreased breath sounds Airway: Mallampati scale class II Neurological: alert and oriented Last oral intake: >/= 8 hours ASA classification: III Emergent: no Anesthetic plan: proceed Anesthesia type and monitoring: general ETT and standard monitoring Results Review: All pre-operative results and documents have been reviewed as part of the pre- operative evaluation. Informed Consent: The patient's anesthetic plan and its attendant risks and benefits were discussed with the patient/family/POA. Questions were solicited and answers provided to the satisfaction of the patient/family/POA.
[2023-07-07] MEDS: LACTATED RINGERS 1,000 ML 30 ML IV CONT ×2 (10:30→12:27)
[2023-07-07] MEDS: ACETAMINOPHEN 500 MG TABLET 1000 MG PO (10:47)
[2023-07-07] MEDS: KETOROLAC 15 MG/ML VIAL (*BKC) IV PUSH (10:48)
[2023-07-07] MEDS: ceFAZolin 3 GM/D5W 100 ML 100 ML IVPB (11:00)
--- NOTE | 2023-07-07 12:11 | W.PM.PROC2 ---
Procedure Note - Detailed Date of Procedure 07/07/23 Pre-op Diagnosis Fibroids, Pain, Post Menopausal Bleeding Post-op Diagnosis Same Procedure Performed Robotic total vaginal hysterectomy bilateral salpingo-oophorectomy Surgeon Cesar Power MD Anesthesia General Indications a 62 year female postmenopausal bleeding benign findings endometrial sampling known fibroids Findings fibroid looking uterus. Normal-appearing ovaries and tubes. Description of Procedure Patient was prepped draped in the normal sterile fashion placed in the dorsal lithotomy position. Under excellent general trach anesthesia speculum placed in posterior fornix. Anterior lip the cervix grasped with a single-tooth tenaculum. Uterus sounded to 10cm. Serial dilatation with fragmented performed followed by passes the 8. MICHELLE and the number 3 cold cup. Next the 16 [place] catheter was placed and bladder drained clear urine. The weighted speculum and single-tooth removed. The gloves were changed. A supraumbilical incision made the Veress needle passed in the abdomen. Abdomen filled with CO2 gas [id number]. The 8mm trocar advanced in the abdomen. Downside visualized no injury seen. Patient placed in 80? Trendelenburg and right left lateral quadrant incisions made. 8Mm trocars advanced under direct visualization assuring injury. A right upper quadrant incision made the 8mm trocar advanced under direct visualization assuring no injury. The robot was docked. Some adhesions were seen anteriorly these were sharply dissected the anterior abdominal wall so the uterus could be seen. The left round ligament was grasped, burned, cut. Anteriorly a bladder flap was formed by sharply dissecting the peritoneum reflecting the bladder caudally away from the cervix uterus the opposite round ligament which was clamped, burned, cut. Next the infundibulopelvic structure was skeletonized to remove the ovary and tube clamped, burned, cut in serially brought to the level of the previously cut ligament. In similar fashion removing the left ovary and tube, infundibulopelvic structure was skeletonized. This was clamped, burned, cut and brought to the level of previously cutRound ligament. The cardinal broad ligaments on the left were then skeletonized serially clamping burning cutting and hugging the cervix and uterus until a large tortuous uterine vessels were seen on the left. These were individually clamped, burned, cut. In similar fashion on the right, the cardinal broad ligaments were serially skeletonized clamping burning cutting and hugging the cervix and uterus until the uterine vessels could be seen on the right. These were individually clamped, burned, cut. Excellent blanching of the uterus was noted. Colpotomy incision made in the cervix uterus ovaries and tubes removed through the vagina. The vagina was then closed with continuous running 0V lock from lateral edge to lateral edge back to the midline. Irrigation undertaken in cul-de-sac. The vagina was cuff was sprinkled with Hudson term. Blood loss estimated 25cc. The robot was undocked. The gas removed from the abdomen and the trocars removed from the incision sites. Incision sites were closed with 4-0 Monocryl and glue. Patient was awakened went to recovery in satisfactory condition. All sponge, needle, instrument counts were correct. There were no immediate complications noted Estimated Blood Loss 25 Drains No Packing No Pathology Yes Complications No immediate complications Condition Stable Disposition PACU
--- NOTE | 2023-07-07 12:15 | PM.DS ---
DS: Admitting Diagnosis Discharge Date 07/08/2023 Admitting Diagnosis uterine fibroids/postmenopausal bleeding DS: Discharge Diagnosis Discharge Diagnosis (1) Pelvic pain: Code(s): R10.2 - Pelvic and perineal pain Status: Acute (2) Uterine fibroid: Code(s): D25.9 - Leiomyoma of uterus, unspecified Status: Acute (3) Postmenopausal bleeding: Code(s): N95.0 - Postmenopausal bleeding Status: Acute DS: Summary Hospital Course Reason for hospitalization: patient was admitted on 07/07/2023 for robotic total the vaginal hysterectomy bilateral salpingo-oophorectomy Hospital Course: the patient's hospital course was unremarkable. She underwent the said procedure. She was up, voiding without difficulty, eating. Chin[place], ambulating, generally without complaints. Time Spent with Patient Time attestation: Total time spent providing and/or coordinating discharge services: Exam Const: General: cooperative, healthy appearing and comfortable Orientation/consciousness: oriented to person, oriented to place and oriented to time HENMT: Head: normal to inspection Resp: Effort & Inspection: normal respiratory effort Cardio: Rate: regular rate Rhythm: regular rhythm Heart sounds: S1 normal heart sound present and S2 normal heart sound present GI: Inspection: normal to inspection, incision ( Wounds are clean dry and intact) and obesity DS: Data Data Completed and Pending Pending studies at discharge: Pending at discharge 07/07/23 11:39 Surgical [PTH] Routine Discharge Plan Discharge Patient Disposition: Home, Self-Care Stand Alone Forms: General Discharge Instructions Follow-up/Referrals: Cesar Scherer MD [Physician] - Discharge Medications: New hydrocodone-acetaminophen 5-325 mg tablet 1 tablet PO Q4H PRN (Reason: pain) Qty: 20 0RF No Action levothyroxine 137 mcg Tablet 137 mcg PO DAILY atorvastatin 10 mg Tablet 10 mg PO DAILY lisinopril-hydrochlorothiazide 10-12.5 mg Tablet 1 tablet PO DAILY Adults Multivitamin 1 tab-cap PO DAILY B Complex-Vitamin B12 1 tab-cap PO DAILY
[2023-07-07] MEDS: fentaNYL CITRATE INJ (*CRX) 100 MCG/2 ML VIAL 25 MCG IV PUSH ×4 (13:04→13:12)
--- NOTE | 2023-07-07 13:30 | PC.NURSE ---
This patient, Yeny Cohen, was received from PACU on 07/07/23 at 1330. Patient/family oriented to unit policies and routines
[2023-07-07] MEDS: DEXTROSE 5%/LACTATED RINGERS 1,000 ML 125 ML IV CONT (14:12)
[2023-07-07] MEDS: KETOROLAC 30 MG/ML VIAL (*BKC) IV PUSH ×2 (14:13→20:47)
[2023-07-07] MEDS: DOCUSATE SODIUM 100 MG CAPSULE PO (18:24)
[2023-07-07] MEDS: SIMETHICONE 80 MG TAB.CHEW PO (18:25)
[2023-07-07] MEDS: FUROSEMIDE INJ 40 MG/4 ML VIAL 20 MG IV PUSH (18:25)
[2023-07-07] MEDS: HYDROcodone/acetaminophen (*CRX) 5-325 MG TABLET 1 TAB PO (20:47)
[2023-07-08 04:30] VITALS: BP 142/60; PULSE 60; RESP 16; TEMP 36.6; O2SAT 98
[2023-07-08 05:11] LABS: Basophils Percent Auto 0.2 % (0.2-1.2); Hematocrit 36.9 % (37.0-47.0); Hemoglobin 11.7 g/dL (12.0-15.0); Immature Granulocyte Absolute 0.05 K/mm3 (0.00-0.031); Immature Granulocyte Percent A 0.5 % (0-0.5); Lymphocytes Absolute Auto 1.37 K/mm3 (0.9-3.2); Lymphocytes Percent Auto 13.7 % (18.3-44.2); Mean Corpuscular HGB Conc 31.7 g/dl (32-36); Mean Corpuscular Volume 100.8 fl (80-100); Mean Platelet Volume 12.3 fl (7.4-10.4); Monocytes Absolute Auto 0.5 K/mm3 (0.1-0.6); Monocytes Percent Auto 5.1 % (2.6-8.5); Neutrophils Absolute Auto 8.1 K/mm3 (1.3-6.7); Neutrophils Percent Auto 80.5 % (45.5-73.1); Platelet Count Result 221 k/mm3 (150-375); Red Blood Count 3.66 M/mm3 (4.2-5.4); Red Cell Distribution Width 13.3 % (11.5-14.5)
--- NOTE | 2023-07-08 06:49 | PM.GYNPNOP ---
REGIONAL BUSINESS DEVELOPMENT MANAGER - A/P Postoperative Procedures: Procedures Operation Date: 07/07/23 11:30 Actual Procedure Side Surgeon p Robotic Assisted Total Vaginal Hysterectomy with Bilateral Salpingo-oophorectomy Bilateral Cesar Power MD Postoperative day: 1 Postoperative status: doing well Postoperative plan: routine post-op care, see orders, ambulate, advance diet and voiding trials Time Spent With Patient Time: Total time spent is greater than 50% in coordination of care (as documented) at patient's floor/unit and/or counseling patient: Time with patient: less than 15 minutes REGIONAL BUSINESS DEVELOPMENT MANAGER- PN:Subj Post-Op Subjective Date/time seen: 07/08/23 06:49 Subjective: patient reports feeling better, patient has no complaints, patient desires discharge, pain is well controlled and patient is tolerating oral intake Exam Const: General: cooperative, healthy appearing and comfortable Orientation/consciousness: oriented to person, oriented to place and oriented to time Resp: Effort & Inspection: normal respiratory effort Cardio: Rate: regular rate Rhythm: regular rhythm Heart sounds: S1 normal heart sound present and S2 normal heart sound present GI: Inspection: normal to inspection, incision (cdi) and obesity REGIONAL BUSINESS DEVELOPMENT MANAGER - PN: Obj Data Vital Signs Vital Signs: Vital Signs - 24 hr 07/07/23 09:25 07/07/23 12:27 07/07/23 12:30 Temperature 97.2 F L 97.4 F L Pulse Rate 60 78 69 Respiratory Rate 16 18 13 Blood Pressure 146/60 H 154/77 H 165/81 H Pulse Oximetry 100 100 100 Oxygen Delivery Room Air Simple Face Mask Simple Face Mask Oxygen Flow Rate 10 10 07/07/23 12:45 07/07/23 13:00 07/07/23 13:15 Temperature Pulse Rate 63 55 L 55 L Respiratory Rate 12 14 12 Blood Pressure 165/92 H 132/65 120/65 Pulse Oximetry 100 96 100 Oxygen Delivery Room Air Room Air Room Air Oxygen Flow Rate 07/07/23 15:09 07/07/23 20:40 07/08/23 04:30 Temperature 98.6 F 98 F 97.8 F Pulse Rate 55 L 67 60 Respiratory Rate 18 18 16 Blood Pressure 136/83 142/64 H 142/60 H Pulse Oximetry 97 96 98 Oxygen Delivery Oxygen Flow Rate Intake/Output Intake/Output: Intake & Output 07/05/23 07/06/23 07/07/23 07/08/23 23:59 23:59 23:59 23:59 Intake Total 2330 550 Output Total 800 400 Balance 1530 150 Meds/Results Medications: Active Medications Generic Name Dose Route Start Last Admin Trade Name Freq PRN Reason Stop Dose Admin Hydrocodone Bitart/Acetaminophen 1 tab 07/07/23 13:24 07/07/23 20:47 Hydrocodone/Acetaminophen (*Crx) 5-325 Mg Tablet PO 1 tab Q3H PRN Administration Pain Rated 5 or Less Hydrocodone Bitart/Acetaminophen 1 tab 07/07/23 13:24 Hydrocodone/Acetaminophen (*Crx) 10-325 Mg Tablet PO Q3H PRN Pain Rated 6 or Greater Docusate Sodium 100 mg 07/07/23 17:00 07/07/23 18:24 Docusate Sodium 100 Mg Capsule PO 100 mg BID ADE Administration Enoxaparin Sodium 40 mg 07/08/23 09:00 Enoxaparin 40 Mg/0.4 Ml Syringe SUB-Q DAILY ADE Dextrose/Lactated Ringer's 1,000 mls @ 125 mls/hr 07/07/23 13:24 07/07/23 21:48 Dextrose 5%/Lactated Ringers IV CONT Infused .Q8H ADE Infusion Ibuprofen 600 mg 07/07/23 13:24 Ibuprofen 600 Mg Tablet PO Q6H PRN Cramping Ketorolac Tromethamine 30 mg 07/07/23 13:24 07/07/23 20:47 Ketorolac 30 Mg/Ml Vial (*Bkc) IV PUSH 07/12/23 13:23 30 mg Q6H PRN Administration Pain Rated 4-6 Naloxone HCl 0.1 mg 07/07/23 13:24 Naloxone Hcl 0.4 Mg/Ml Vial IV PUSH Q2M PRN Respiratory rate less than 10 Ondansetron HCl 4 mg 07/07/23 13:24 Ondansetron Inj 4 Mg/2 Ml Vial IV PUSH Q6H PRN Nausea And Vomiting Simethicone 80 mg 07/07/23 17:00 07/07/23 18:25 Simethicone 80 Mg Tab.Chew PO 80 mg TIDWM ADE Administration Labs 07/08/23 04:54 Labs: Laboratory Results - last 24 hr 07/08/23 04:54 WBC 10.0 RBC 3.66 L Hgb 11.7 L Hct 36.9 L MCV 100.8 H MCH 3
[2023-07-08 07:17] VITALS: BP 117/55; PULSE 59; RESP 16; RESP 18; TEMP 36.4; O2SAT 98
[2023-07-08] MEDS: HYDROcodone/acetaminophen (*CRX) 5-325 MG TABLET 1 TAB PO (08:33)
[2023-07-08] MEDS: ENOXAPARIN 40 MG/0.4 ML SYRINGE SUB-Q (08:33)
[2023-07-08] MEDS: DOCUSATE SODIUM 100 MG CAPSULE PO (08:35)
[2023-07-08] MEDS: SIMETHICONE 80 MG TAB.CHEW PO (08:35)
--- NOTE | 2023-07-08 08:40 | P.PNAN_ITS ---
Anes - Prog Note Post-Op Date/Time: 07/08/23 08:40 Cardiovascular status: normal Respiratory status: normal Airway patency: baseline Mental status: baseline Post-Op hydration status: normal Vital Signs: Last Vital Signs Temp 36.4 C 07/08/23 07:17 Pulse 59 L 07/08/23 07:17 Resp 18 07/08/23 07:17 BP 117/55 L 07/08/23 07:17 Pulse Ox 98 07/08/23 07:17 O2 Del Method Room Air 07/08/23 07:17 O2 Flow Rate 10 07/07/23 12:30 Pain Score (VAS): 2 I/O: Intake & Output 07/07/23 07/08/23 07/08/23 23:59 07:59 15:59 Intake Total 2030 550 Output Total 800 400 Balance 1230 150 Laboratory Tests 07/08/23 04:54 07/08/23 04:54 WBC 10.0 RBC 3.66 L Hgb 11.7 L Hct 36.9 L MCV 100.8 H MCH 32.0 MCHC 31.7 L RDW 13.3 Plt Count 221 MPV 12.3 H Immature Gran % (Auto) 0.5 Neut % (Auto) 80.5 H Lymph % (Auto) 13.7 L [place] % (Auto) 5.1 Eos % (Auto) 0.0 Baso % (Auto) 0.2 Lymph # (Auto) 1.37 [place] # (Auto) 0.5 Eos # (Auto) 0.0 Baso # (Auto) 0.0 Abs Immat Gran (auto) 0.05 H Absolute Neuts (auto) 8.1 H Absolute Nucleated RBC 0.0 Nucleated RBC % 0.0 Post-procedural complaints: none Patient Feedback: Patient satisfied with anesthetic care.
== END 2023-07-08 11:00 | disposition home or self-care (01) ==
LOC: ANHSURGERY 09:10 → ANHOB2 13:27
PROVIDERS: PCP Nurse Practitioner Family; Visit Provider Obstetrics & Gynecology
PROC: (CPT 58552; principal; 2023-07-07 11:30)
DX: N88.8 Other specified noninflammatory disorders of cervix uteri (principal); N84.0 Polyp of corpus uteri; D25.1 Intramural leiomyoma of uterus; D25.2 Subserosal leiomyoma of uterus; N95.0 Postmenopausal bleeding; I10 Essential (primary) hypertension; E03.9 Hypothyroidism, unspecified; E78.5 Hyperlipidemia, unspecified; E11.9 Type 2 diabetes mellitus without complications; F41.9 Anxiety disorder, unspecified; F12.90 Cannabis use, unspecified, uncomplicated; E66.01 Morbid (severe) obesity due to excess calories; Z68.43 Body mass index [BMI] 50.0-59.9, adult; Z79.891 Long term (current) use of opiate analgesic; Z80.0 Family history of malignant neoplasm of digestive organs; Z82.49 Family history of ischemic heart disease and other diseases of the circulatory system
CPT/HCPCS: 58552; S2900; 36415; 85025; 88307; 99199; A9270; J0330; J0690; J1100; J1650; J1885; J1940; J2250; J2405; J2704; J3010; J7030; J7120; J7121